=== PATIENT | male | born 1960 | race Caucasian/White ===

== ENCOUNTER → 2017-07-23 | Outpatient (CLI) | payer OTHER ==
--- NOTE | 2017-07-23 11:12 | REP ---
Right ankle four views: There is soft tissue edema laterally. There is a small calcification lateral to the distal fibula, accessory ossicle versus an avulsions. No other fracture is identified. The mortise is symmetric. 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 There is a small calcaneal Achilles spur. Signed by Jong Rivera MD 07/23/2017 11:04 A
== END ==
LOC: M ADAMS 10:34
PROVIDERS: ATTEND Physician Assistant
DX: M25.571 Pain in right ankle and joints of right foot (principal)